=== PATIENT | female | born 1990 | race Caucasian/White ===

== ENCOUNTER 2023-01-05 08:49 | Emergency (ER) | payer MEDICAID ==
[~2023-01-05] VITALS: Ht 162.6 cm; Wt 63.5 kg
[2023-01-05 09:04] VITALS: BP 124/83
--- NOTE | 2023-01-05 09:43 | NUR ---
CLOSED HEAD INJURY, SP FALL 2 DAYS AGO. NOW C/O HEADACHE 5/10, WITH BLURRY VISION AND ACCOMPANYING N/V.
[2023-01-05] MEDS ORDERED: NAPR-1704 PO (12:14)
[2023-01-05] MEDS ORDERED: ONDA-188 PO (12:14)
[2023-01-05 12:38] VITALS: BP 110/69
--- NOTE | 2023-01-05 12:39 | NUR ---
Patient discharged with v/s stable. Written and verbal after care instructions given and explained. Patient alert, oriented and verbalized understanding of instructions. Ambulatory with steady gait. All questions addressed prior to discharge. ID band removed. Patient advised to follow up with PMD. Rx of NAPROXEN, ONDANSETRON given. Patient educated on indication of medication including possible reaction and side effects. Opportunity to ask questions provided and answered.
== END 2023-01-05 12:38 | disposition home or self-care (01) ==
LOC: MED 08:49
DX: S06.0X0A Concussion without loss of consciousness, initial encounter (principal); Z79.899 Other long term (current) drug therapy; Z90.49 Acquired absence of other specified parts of digestive tract; Z98.890 Other specified postprocedural states; W01.0XXA Fall on same level from slipping, tripping and stumbling without subsequent striking against object, initial encounter; Y93.89 Activity, other specified; Y92.89 Other specified places as the place of occurrence of the external cause; Y99.8 Other external cause status
CPT/HCPCS: 70450; 93005; 99284

== ENCOUNTER 2023-02-14 18:25 | Emergency (ER) | payer MEDICAID ==
[~2023-02-14] VITALS: Ht 162.6 cm; Wt 88.0 kg
[~2023-02-14 18:25] MED LIST: NAPR-1704 PO; ONDA-188 PO
[2023-02-14 18:40] VITALS: BP 130/91; PULSE 92; RESP 18; TEMP 98.4; O2SAT 98
--- NOTE | 2023-02-14 19:30 | NUR ---
PT RETURNED FROM CT
--- NOTE | 2023-02-14 19:50 | NUR ---
pt restong on bed, A/Ox4. not in distress. on monitor. placed on moderate high back rest. call light within reach, pt instructed on how to use call light, pt returned demonstration. all needs met at this time. bed locked in lowest position, side rails x2 for safety
[2023-02-14] MEDS ORDERED: KETOROLAC 60 MG/2 ML VIAL IM ONE (20:20)
[2023-02-14] MEDS ORDERED: IBUP-2213 PO (20:49)
[2023-02-14] MEDS ORDERED: ACET-8905 PO (20:49)
[2023-02-14 21:10] VITALS: BP 125/86; PULSE 92; RESP 18; TEMP 98.2; O2SAT 98
--- NOTE | 2023-02-14 21:10 | NUR ---
Patient discharged with v/s stable. Written and verbal after care instructions given and explained. Patient alert, oriented and verbalized understanding of instructions. Ambulatory with steady gait. All questions addressed prior to discharge. ID band removed. Patient advised to follow up with PMD. Rx given to pt. Patient educated on indication of medication including possible reaction and side effects. Opportunity to ask questions provided and answered.
== END 2023-02-14 21:10 | disposition home or self-care (01) ==
LOC: MED 18:25
DX: S00.83XA Contusion of other part of head, initial encounter (principal); M25.561 Pain in right knee; M25.522 Pain in left elbow; Z79.899 Other long term (current) drug therapy; Z90.49 Acquired absence of other specified parts of digestive tract; W18.30XA Fall on same level, unspecified, initial encounter; Y93.89 Activity, other specified; Y92.89 Other specified places as the place of occurrence of the external cause; Y99.8 Other external cause status
CPT/HCPCS: 70450; 70486; 72125; 73080; 73562; 96372; 99285; J1885

== ENCOUNTER 2023-04-05 10:39 | Emergency (ER) | payer MEDICAID ==
[~2023-04-05] VITALS: Ht 165.1 cm; Wt 88.0 kg
[~2023-04-05 10:39] MED LIST changes: +ACET-8905 PO; +IBUP-2213 PO
[2023-04-05 11:02] VITALS: BP 112/84; PULSE 72; RESP 18; TEMP 97.8; O2SAT 98
[2023-04-05] MEDS ORDERED: IBUP-2213 PO (12:47)
[2023-04-05] MEDS ORDERED: ACET-10509 PO (12:47)
[2023-04-05] MEDS ORDERED: SULF-59 PO (12:47)
[2023-04-05 12:52] VITALS: BP 111/84; PULSE 75; RESP 18; TEMP 98; O2SAT 99
== END 2023-04-05 12:52 | disposition home or self-care (01) ==
LOC: MED 10:39
DX: L03.114 Cellulitis of left upper limb (principal); F15.90 Other stimulant use, unspecified, uncomplicated; F17.200 Nicotine dependence, unspecified, uncomplicated; Z79.899 Other long term (current) drug therapy
CPT/HCPCS: 99283